=== PATIENT | female | born 1940 | race Hispanic/Latino ===

== ENCOUNTER → 2017-05-14 | Day surgery (SDC) | payer MEDICARE ==
[2017-05-02 14:35] LABS: BASOPHILS % 0.7 % (0.0-1.0); EOSINOPHILS # (AUTO) 0.2 (0.0-0.4); EOSINOPHILS % 2.6 % (0.0-6.0); HEMATOCRIT 39.2 % (34.2-44.1); LYMPHOCYTES # (AUTO) 1.6 (1.0-3.2); LYMPHOCYTES % 27.4 % (18.0-39.1); MEAN CORPUSCULAR HEMOGLOBIN 30.3 pg (28-32); MEAN CORPUSCULAR HGB CONC 33.2 g/dL (31-35); MEAN CORPUSCULAR VOLUME 91.4 fL (81-99); MONOCYTES # (AUTO) 0.4 (0.2-0.8); MONOCYTES % 6.3 % (4.4-11.3); NEUTROPHILS # (AUTO) 3.7 (2.1-6.9); NEUTROPHILS % 62.7 % (38.7-80.0); PLATELET COUNT 265 x10e3/uL (140-360); RED BLOOD COUNT 4.29 x10e6/uL (3.6-5.1); RED CELL DISTRIBUTION WIDTH 13.2 % (11.7-14.4)
--- NOTE | 2017-05-02 15:19 | Diagnostic Imaging Report ---
PROCEDURE: Frontal and lateral views of the chest. COMPARISON: None. INDICATIONS: PRE OPERATIVE CHEST X-RAY FOR CLAVICLE SURGERY FINDINGS: Lines/tubes: Median sternotomy wires and partially visualized spinal stimulator wires at T8. Lungs: The lungs are well inflated and clear. There is no evidence of pneumonia or pulmonary edema. Pleura: There is no pleural effusion or pneumothorax. Heart and mediastinum: The heart and the mediastinum are normal. Atherosclerotic calcifications in the aorta. Bones: No acute bony abnormality. IMPRESSION: No acute cardiopulmonary disease. Dictated by: Jan Irwin M.D. on 05/02/2017 at 15:27 Electronically approved by: Jan Irwin M.D. on 05/02/2017 at 15:27
[~2017-05-14] MED LIST: AMLODIPINE BESYL5 MG PO; ASPIR 8181 MG PO; CEFAZOLIN SOD 1 GM VIAL ONE; DEXAMETHASONE SOD PHOS INJ 4 MG/ML VIAL ONE; FENTANYL CITRATE/PF 100MCG/2 ML INJ ONE; GLYCOPYRROLATE INJ 1MG/ 5 ML SYR ONE; HYDROCODONE/APAP 7.5MG-325MG 1 EA TAB ONE; ISOSORBIDE MONO20 MG PO; KETOROLAC TROMETHAMINE 30 MG/ML VIAL ONE; LIDOCAINE 2% /EPINEPHRINE 20 ML SDV INJ ONE; LIDOCAINE HCL 2% LOCAL INJ 5 ML SDV VIAL INJ ONE; METOPROLOL SUCC50 MG PO; MIDAZOLAM HCL 2 MG/2 ML VIAL ONE; NEOSTIGMINE 5 MG/5ML SYR ONE; NORCO 7.5-3251 EACH PO; OMEGA-31000 MG PO; OMEPRAZOLE40 MG PO; ONDANSETRON HCL INJ 2 MG/ML VIAL ONE; PRAVASTATIN SOD40 MG PO; PROPOFOL IV EMULSION 10 MG/ML 20 ML VIAL ONE; ROCURONIUM BROMIDE 10 MG/ML 5ML VIAL ONE; ROPIVACAINE 0.5% 5 MG/ML 30 ML SDV ONE; SEVOFLURANE INHAL SOLN 250 ML PEN BTL ONE
--- NOTE | 2017-05-14 09:11 | Operative Report ---
DATE OF PROCEDURE: May 14, 2017 CLINICAL LAB CLERK: Kike Quiroga PA-C The patient was brought to the operating room for induction of anesthesia. Throughout this case, my PA's assistance was necessary for retraction of soft tissue and positioning of the extremity. This allows for efficient and technically successful execution of the operation and is considered medically necessary. PREOPERATIVE DIAGNOSIS: Left distal clavicle fracture. POSTOPERATIVE DIAGNOSIS: Left distal clavicle fracture. PROCEDURE: Open reduction internal fixation of left distal clavicle. INDICATIONS: The patient is a 76-year-old lady who has a displaced left distal clavicle fracture. We have encouraged observation and conservative management. The patient complains of pain and deformity. She strongly wishes to have this fixed surgically. The risks and benefits have been discussed. The likelihood of some persistent pain in the postoperative period has been clearly explained. She states she understands and wishes to proceed. DESCRIPTION OF PROCEDURE: The patient was brought to the operating room and placed under general anesthetic. She received a regional block and prophylactic antibiotics in the holding area. Her left upper extremity was prepped and draped in a sterile manner. She was positioned in the beach chair position on the shoulder table. An incision was made along Alvin's lines over the distal clavicle. The coracoid process was palpated to orient the incision. Hemostasis was obtained with electrocautery. The distal and proximal clavicle portions were carefully exposed. The anterior head of the deltoid was gently split to palpate the coracoid process. The fracture sites were debrided of fibrous nonunion. Looking at this, I felt that a better option over distal clavicle resection would be to tie down the proximal fragment and see if it will anatomically reduce. An Arthrex suture passer was used to pass a FiberTape stitch around the coracoid process and the proximal portion of the clavicle. This was secured tightly and reduced the fracture fragments almost anatomically. A secondary FiberTape stitch was then placed. I felt the reduction was surprisingly good. Some DBX bone putty was then placed in the fracture site. This was done after carefully irrigating the wound. The deltoid trapezial fascia was then carefully secured with 0 Vicryl in a buried fashion. The skin was closed with subcuticular Vicryl and lisset. A sterile bandage and an ultra sling were applied. Estimated blood loss was about 20 mL. At the end of the procedure, all needle and sponge counts were correct. Job#: [id number]
== END | disposition home or self-care (01) ==
LOC: OR 05:33
PROVIDERS: ATTEND Specialist
DX: S42.032A Displaced fracture of lateral end of left clavicle, initial encounter for closed fracture (principal); I10 Essential (primary) hypertension; I25.810 Atherosclerosis of coronary artery bypass graft(s) without angina pectoris; W22.01XA Walked into wall, initial encounter; W18.39XA Other fall on same level, initial encounter; Y92.002 Bathroom of unspecified non-institutional (private) residence as the place of occurrence of the external cause; Z01.810 Encounter for preprocedural cardiovascular examination; Z01.812 Encounter for preprocedural laboratory examination; Z01.818 Encounter for other preprocedural examination; Z95.1 Presence of aortocoronary bypass graft
CPT/HCPCS: 23515; 36415; 71046; 85025; 93005; C1713; J0690; J1100; J1885; J2001 ×2; J2250; J2405; J2795